=== PATIENT | male | born 1960 | race Asian ===

== ENCOUNTER 2020-05-03 15:16 | Emergency (ER) | payer BC ==
[~2020-05-03] VITALS: Ht 170.2 cm; Wt 66.2 kg
[2020-05-03 15:42] VITALS: Ht 170.2 cm; Wt 66.2 kg
[2020-05-03 17:29] LABS: BASOPHIL % 0.3 % (0-2); PLATELET COUNT 215 x10^3mcL (130-400); RED CELL DISTRIBUTION WIDTH 13.4 % (11.5-14.5)
[2020-05-03 17:35] LABS: CALCIUM 9.5 mg/dL (8.5-10.1); CARBON DIOXIDE 31.6 mmol/L (21-32); CHLORIDE SERUM 103 mmol/L (98-107); CREATININE SERUM 1.2 mg/dL (0.7-1.3); GFR1 > 60 mL/min; GLUCOSE SERUM 104 mg/dL (74-106); POTASSIUM SERUM 4.6 mmol/L (3.5-5.1); SODIUM SERUM 142 mmol/L (136-145)
[2020-05-03 17:40] LABS: ALBUMIN 4.2 g/dL (3.4-5.0); ALKALINE PHOSPHATASE 48 U/L (46-116); ALT/SGPT 30 U/L (16-63); AST/SGOT 18 U/L (15-37); BILIRUBIN TOTAL 0.5 mg/dL (0.20-1.00); LIPASE 182 IU/L (73-393)
[2020-05-03 17:42] LABS: TOTAL PROTEIN, SERUM 8.5 g/dL (6.4-8.2)
[2020-05-03 20:11] VITALS: BP 127/77
== END 2020-05-03 20:11 | disposition home or self-care (01) ==
LOC: ED 15:16
PROVIDERS: Emergency Medicine
DX: R10.31 Right lower quadrant pain (principal)